=== PATIENT | male | born 1945 ===

== ENCOUNTER 2017-08-21 07:41 | Day surgery (SDC) | payer MEDICARE, OTHER ==
[2017-08-21] MEDS ORDERED: Lactated Ringer's 500 ML IV ONE (09:31)
[2017-08-21] MEDS ORDERED: Midazolam 2 MG/2 ML VIAL ONE (10:09)
[2017-08-21] MEDS ORDERED: Propofol 10 mg/ml Inj (20 ML) ONE (10:09)
[2017-08-21] MEDS ORDERED: ePHEDrine 50 mg/ml Inj ONE (10:31)
[2017-08-21 11:06] VITALS: BP 122/67; PULSE 83; RESP 14; TEMP 96.5; O2SAT 99
== END 2017-08-21 11:30 | disposition home or self-care (01) ==
LOC: H.ENDO 07:41
PROVIDERS: ATTEND Internal Medicine Gastroenterology
DX: Z12.11 Encounter for screening for malignant neoplasm of colon (principal); E11.9 Type 2 diabetes mellitus without complications; E78.5 Hyperlipidemia, unspecified; I10 Essential (primary) hypertension; E03.9 Hypothyroidism, unspecified; K57.30 Diverticulosis of large intestine without perforation or abscess without bleeding; K64.0 First degree hemorrhoids
CPT/HCPCS: 45378; J2250; J2704; J7120

== ENCOUNTER 2017-10-21 06:59 | Emergency (ER) | payer MEDICARE, OTHER ==
[2017-10-21 07:31] VITALS: BP 135/64; PULSE 102; RESP 16; TEMP 99; O2SAT 99
--- NOTE | 2017-10-21 07:56 | ED PDOC ---
HPI: CCC, URI, Sore Throat Time Seen by Provider: 10/21/17 07:28 Chief Complaint (Nursing): Flu-like Symptoms History Per: Patient, Tour Counselor (kate harden interpreter) History/Exam Limitations: no limitations Have you had recent travel within the past 21 days to any of the following countries: [place], [place], [place] or [place]?: No Onset/Duration Of Symptoms: Days (2), Gradual Current Symptoms Are (Timing): Still Present Location Of Pain: None Sick Contacts (Context): None Associated Symptoms: Cough. denies: Fever, Chills, Sore Throat, Sputum, Neck Pain, Myalgias, Nasal Congestion, Nausea, Vomiting, Diarrhea Ear Symptoms: Bilateral: None Severity: Mild Additional History Per: Patient Additional Complaint(s): Complaints of cough and congestion beginning Friday. Complaints of right flank pain when coughing. Past Medical History Reviewed: Historical Data, Nursing Documentation, Vital Signs Vital Signs: Last Vital Signs Temp 99.0 F 10/21/17 07:29 Pulse 102 H 10/21/17 07:29 Resp 16 10/21/17 07:29 BP 135/64 10/21/17 07:29 Pulse Ox 99 10/21/17 09:00 - Medical History PMH: Bronchitis, Diabetes (Type II), HTN, Hypercholesterolemia, Hypothyroidism Denies: Chronic Kidney Disease - Family History Family History: States: Unknown Family Hx - Living Arrangements Living Arrangements: With Family - Social History Current smoker - smoking cessation education provided: No - Immunization History Hx Tetanus Toxoid Vaccination: Yes Hx Influenza Vaccination: Yes Hx Pneumococcal Vaccination: No - Home Medications Home Medications: Ambulatory Orders Medication Instructions Recorded Aspirin [Ecotrin] 81 mg PO DAILY 04/16/16 Albuterol HFA [Ventolin HFA 90 1 puff IH BID 10/21/17 mcg/actuation (8 g)] Finasteride [Proscar] 5 mg PO DAILY 10/21/17 Insulin Aspart/Insulin Aspar 20 units SQ BID 10/21/17 [Novolog Mix 70/30 (70/30 units/ml)] Levofloxacin [Levaquin] 500 mg PO DAILY #7 tablet 10/21/17 Levothyroxine [Synthroid] 50 mcg PO DAILY 10/21/17 Pravastatin Sodium [Pravachol] 40 mg PO DAILY 12/05/17 Sitagliptin Phos/Metformin HCl 1 tab PO BID 10/21/17 [Janumet 50-1,000 mg Tablet] Tamsulosin HCl [Flomax] 1 tab PO DAILY 10/21/17 - Allergies Allergies/Adverse Reactions: Allergies Allergy/AdvReac Type Severity Reaction Status Date / Time No Known Allergies Allergy Verified 08/21/17 09:27 Curb-65 Severity Score - CURB-65 Severity Score Confusion: No Bun >19mg/dl (>7mmol/L): No Systolic BP <90 or Diastolic BP less than/equal 60mmHg: No Age >64: Yes Curb-65 Score: 1 Percentage 30-day mortality: 2.7% Review of Systems ROS Statement: Except As Marked, All Systems Reviewed And Found Negative Constitutional: Negative for: Fever, Sweats Cardiovascular: Negative for: Chest Pain, Palpitations Respiratory: Positive for: Cough. Negative for: Shortness of Breath Gastrointestinal: Negative for: Nausea, Vomiting, Abdominal Pain Musculoskeletal: Negative for: Neck Pain Neurological: Negative for: Weakness, Numbness Physical Exam - Reviewed Nursing Documentation Reviewed: Yes Vital Signs Reviewed: Yes - Physical Exam Appears: Positive for: Uncomfortable Head Exam: Positive for: ATRAUMATIC, NORMAL INSPECTION, NORMOCEPHALIC Skin: Positive for: Normal Color, Warm, Dry Eye Exam: Positive for: Normal appearance, EOMI, PERRL ENT: Positive for: Pharynx Is (clear,mmm). Negative for: Pharyngeal Erythema, Tonsillar Exudate Neck: Positive for: Normal, Painless ROM, Supple Cardiovascular/Chest: Positive for: Regular Rate, Rhythm, Chest Non Tender. Negative for: Edema, Gallop Respiratory: Positive for: Normal Breath Sounds. Negative for: Decreased Breath Sounds, Accessory Muscle Use, Crackles, Rales, Rhonchi, Stridor, Wheezing , Respiratory Distress Pulses-Radial (L): 2+ Pulses-Radial (R): 2+ Gastrointestinal/Abdominal: Positive for: Normal Exam, Bowel Sounds, Soft. Negative for: Tenderness Back: Positive for: Normal Inspection. Negative for: L CVA Tenderness, R CVA Tenderness Extremity: Positive for: Normal ROM. Negative for: Tenderness, Pedal Edema, Calf Tenderness, Deformity, Swelling Neurologic/Psych: Positive for: Alert, movie projectionist II-XII, Oriented, Mood/Affect (calm) , Gait (gait steady). Negative for: Motor/Sensory Deficits, Facial Droop - Laboratory Results Result Diagrams: 10/21/17 08:00 10/21/17 08:00 - ECG ECG: Positive for: Interpreted By Me ECG Rhythm: Positive for: Normal ST Segment, Right Bundle Branch Block Interpretation Of Abn EKG: rate of 82, abnml ecg w/o change since prev O2 Sat by Pulse Oximetry: 99 Pulse Ox Interpretation: Normal - Radiology X-Ray: Interpreted by Me X-Ray Interpretation: No Acute Disease - Progress ED Course And Treament: ct scan of abd and pelvis w/o contrast revelas small renal stones, pt has mild cough now will place on levaquin now advise close f/u with pmd. Re-evaluation Time: 12:00 Condition: Improved Disposition - Clinical Impression Clinical Impression: Bronchitis, Renal stones - Patient ED Disposition Is Patient to be Admitted: No Counseled Patient/Family Regarding: Studies Performed, Diagnosis, Need For Followup, Rx Given - Disposition Referrals: [facility] [place] [Outside] (2 to 3 days) Disposition: Routine/Home Disposition Time: 12:00 Condition: GOOD Prescriptions: Levofloxacin [Levaquin] 500 mg PO DAILY #7 tablet Instructions: Acute Bronchitis (ED), Kidney Stones (ED) Forms: [employer] (Amharic) Print Language: BULGARIAN
[2017-10-21 08:17] LABS: BASO # 0.1 K/uL (0.0-0.2); BASO % 0.7 % (0.0-2.0); EOS # 0.3 K/uL (0.0-0.7); EOS % 2.7 % (0.0-4.0); HEMATOCRIT 34.8 % (35.0-51.0); LYMPH # 1.7 K/uL (1.0-4.3); LYMPH % 16.1 % (20.0-40.0); MEAN CORPUSCULAR HEMOGLOBIN 28.8 pg (27.0-31.0); MEAN CORPUSCULAR HGB CONC 32.8 g/dL (33.0-37.0); MEAN PLATELET VOLUME 8.2 fl (7.2-11.7); MONO % 9.1 % (0.0-10.0); NEUT # 7.5 K/uL (1.8-7.0); NEUT % 71.4 % (50.0-75.0); RED CELL DISTRIBUTION WIDTH 15.1 % (11.5-14.5); WHITE BLOOD COUNT 10.4 K/uL (4.8-10.8)
[2017-10-21 08:22] LABS: ALB/GLOB RATIO 1.1 (1.0-2.1); ALKALINE PHOSPHATASE 126 U/L (38-126); ALT/SGPT 29 U/L (21-72); AST/SGOT 19 U/L (17-59); BILIRUBIN,TOTAL 0.3 mg/dl (0.2-1.3); BLOOD UREA NITROGEN 26 mg/dl (9-20); CALCIUM 8.5 mg/dL (8.4-10.2); CARBON DIOXIDE 24 mmol/L (22-30); CHLORIDE 104 mmol/L (98-107); GFR AFRICAN-AMERICAN > 60; GLUCOSE,RANDOM 329 mg/dL (75-110); LIPASE 150 U/L (23-300); MAGNESIUM 1.7 MG/DL (1.6-2.3); POTASSIUM 4.3 MMOL/L (3.6-5.0); SODIUM 139 mmol/l (132-148); TOTAL PROTEIN 7.5 G/DL (6.3-8.2)
[2017-10-21 08:54] LABS: RBC URINE 6 /hpf (0-3); URINE BILIRUBIN NEGATIVE (NEGATIVE); URINE BLOOD SMALL (NEGATIVE); URINE COLOR YELLOW (YELLOW); URINE GLUCOSE (UA) >=500 mg/dL (Normal); URINE KETONE NEGATIVE (NEGATIVE); URINE LEUKOCYTE ESTERASE NEG Leu/uL (Negative); URINE PROTEIN NEGATIVE (NEGATIVE); URINE UROBILINOGEN 0.2-1.0 mg/dL (0.2-1.0); WBC URINE 1 /hpf (0-5)
[2017-10-21] MEDS ORDERED: Sodium Chloride 0.9% 500 ML IV ONE (09:51)
--- NOTE | 2017-10-21 13:13 | CT ---
PROCEDURE: CT Abdomen and Pelvis without intravenous contrast HISTORY: Left flank pain, calculus disease suspected COMPARISON: None. TECHNIQUE: Technique. Contrast Dose: Radiation dose: Total exam DLP = mGy-cm. This CT exam was performed using one or more of the following dose reduction techniques: Automated exposure control, adjustment of the mA and/or kV according to patient size, and/or use of iterative reconstruction technique. FINDINGS: LOWER THORAX: Unremarkable. LIVER: Unremarkable. No gross lesion or ductal dilatation. Simple cyst left hepatic lobe 0.8 x 1.6 cm GALLBLADDER AND BILE DUCTS: Unremarkable. PANCREAS: Unremarkable. No gross lesion or ductal dilatation. SPLEEN: Unremarkable. ADRENALS: Unremarkable. No mass. KIDNEYS AND URETERS: Multiple punctate calculi left kidney non larger than 2 mm. No evidence of hydronephrosis or hydroureter. Incidental cyst 2.2 cm Unremarkable right kidney. VASCULATURE: Unremarkable. No aortic aneurysm. BOWEL: Constipation without fecal impaction or obstruction. APPENDIX: Unremarkable. Normal appendix. PERITONEUM: Unremarkable. No free fluid. No free air. LYMPH NODES: Unremarkable. No enlarged lymph nodes. BLADDER: Unremarkable. REPRODUCTIVE: Enlarged prostate 5.2 x 6.5 cm. BONES: No acute fracture. OTHER FINDINGS: None. IMPRESSION: Nonobstructing calculi none larger than 2 mm left kidney. No evidence of hydronephrosis, hydroureter. Unremarkable urinary bladder. Markedly enlarged prostate impressing upon the urinary bladder.
--- NOTE | 2017-10-21 14:09 | RAD ---
HISTORY: cp COMPARISON: Chest radiographs 04/16/2016. TECHNIQUE: Chest PA and lateral FINDINGS: LUNGS: No active pulmonary disease. Calcified granuloma again seen the right apex. PLEURA: No significant pleural effusion identified. No pneumothorax apparent. CARDIOVASCULAR: Cardiac silhouette remains normal size with partially calcified right-sided aortic arch again evident. OSSEOUS STRUCTURES: No significant abnormalities. VISUALIZED UPPER ABDOMEN: Normal. OTHER FINDINGS: None. IMPRESSION: No interval acute cardiopulmonary disease appreciated.
[2017-10-21] MEDS ORDERED: levoFLOXacin 500 MG TAB PO STA (14:23)
--- NOTE | 2017-10-22 12:28 | CARD ---
APPROVED REPORT EKG Measurement Heart [id number] <Conclusion> Normal sinus rhythm Left axis deviation Right bundle branch block Abnormal ECG
== END 2017-10-21 15:00 | disposition home or self-care (01) ==
LOC: H.ER 06:59
DX: J40 Bronchitis, not specified as acute or chronic (principal); N20.0 Calculus of kidney; E03.9 Hypothyroidism, unspecified; E11.9 Type 2 diabetes mellitus without complications; E78.00 Pure hypercholesterolemia, unspecified; I10 Essential (primary) hypertension; N40.0 Benign prostatic hyperplasia without lower urinary tract symptoms; Z79.4 Long term (current) use of insulin; Z79.82 Long term (current) use of aspirin
CPT/HCPCS: 71020; 74176; 80053; 81003; 83690; 83735; 83880; 84484; 85025; 85610; 85730; 87804; 93005; 96360; 99284; J7040

== ENCOUNTER 2018-06-01 08:19 | Emergency (ER) | payer MEDICARE, OTHER ==
[2018-06-01 08:26] VITALS: BP 115/83; PULSE 81; O2SAT 98
[2018-06-01 08:27] VITALS: BMI 25.7
--- NOTE | 2018-06-01 08:55 | ED PDOC ---
HPI: Back Time Seen by Provider: 06/01/18 08:27 Chief Complaint (Nursing): Back Pain Chief Complaint (Provider): Back Pain History/Exam Limitations: no limitations Onset/Duration Of Symptoms: Days (x1) Additional Complaint(s): Susan Mcdonald is a 72 y/o male with past medical history of diabetes and Hypertension, who presents to the ED complaining of lower back pain, onset since x1 day ago. Patient reports the pain began yesterday after lifting heavy object and the pain does not radiate. The pain is not associated with weakness, paresthesia, or urinary symptoms. PMD: Joaquina Ness Past Medical History Reviewed: Historical Data, Nursing Documentation, Vital Signs Vital Signs: Last Vital Signs Temp 97 F L 06/01/18 08:25 Pulse 81 06/01/18 08:25 Resp BP 115/83 06/01/18 08:25 Pulse Ox 98 06/01/18 08:25 - Medical History PMH: Bronchitis, Diabetes (Type II), HTN, Hypercholesterolemia, Hypothyroidism Denies: Chronic Kidney Disease - Surgical History Surgical History: No Surg Hx - Family History Family History: States: Unknown Family Hx - Immunization History Hx Tetanus Toxoid Vaccination: Yes Hx Influenza Vaccination: Yes Hx Pneumococcal Vaccination: No - Home Medications Home Medications: Ambulatory Orders Medication Instructions Recorded Aspirin [Ecotrin] 81 mg PO DAILY 04/16/16 Albuterol HFA [Ventolin HFA 90 1 puff IH BID 10/21/17 mcg/actuation (8 g)] Finasteride [Proscar] 5 mg PO DAILY 10/21/17 Insulin Aspart/Insulin Aspar 20 units SQ BID 10/21/17 [Novolog Mix 70/30 (70/30 units/ml)] Levofloxacin [Levaquin] 500 mg PO DAILY #7 tablet 10/21/17 Levothyroxine [Synthroid] 50 mcg PO DAILY 10/21/17 Pravastatin Sodium [Pravachol] 40 mg PO DAILY 10/21/17 Sitagliptin Phos/Metformin HCl 1 tab PO BID 10/21/17 [Janumet 50-1,000 mg Tablet] Tamsulosin HCl [Flomax] 1 tab PO DAILY 10/21/17 Cyclobenzaprine [Cyclobenzaprine 10 mg PO TID #10 tab 06/01/18 HCl] Naproxen [Naprosyn] 500 mg PO Q12H #20 tab 06/01/18 - Allergies Allergies/Adverse Reactions: Allergies Allergy/AdvReac Type Severity Reaction Status Date / Time No Known Allergies Allergy Verified 08/21/17 09:27 Review of Systems ROS Statement: Except As Marked, All Systems Reviewed And Found Negative Genitourinary Male: Negative for: Dysuria, Frequency, Incontinence Musculoskeletal: Positive for: Back Pain (lower back ) Neurological: Negative for: Weakness, Other (paresthesia) Physical Exam - Reviewed Nursing Documentation Reviewed: Yes Vital Signs Reviewed: Yes - Physical Exam Appears: Positive for: Non-toxic, No Acute Distress Head Exam: Positive for: ATRAUMATIC, NORMOCEPHALIC Back: Positive for: Other (paralumbar spasm). Negative for: Vertebral Tenderness (midline spine tenderness or deformity) Extremity: Positive for: Normal ROM, Other (No pain straight leg raise test). Negative for: Pedal Edema, Deformity Neurologic/Psych: Negative for: Motor/Sensory Deficits - ECG O2 Sat by Pulse Oximetry: 98 (RA) Pulse Ox Interpretation: Normal - Progress Re-evaluation Time: 10:00 Condition: Improved Medical Decision Making Medical Decision Making: Time: 08:51 Initial Plan: --Flexeril 10 mg PO --Toradol 30 mg IM Scribe Attestation: Documented by Uriah Rosales, acting as a scribe for Benny Jorgensen MD. Provider Scribe Attestation: All medical record entries made by the Scribe were at my direction and personally dictated by me. I have reviewed the chart and agree that the record accurately reflects my personal performance of the history, physical exam, medical decision making, and the department course for this patient. I have also personally directed, reviewed, and agree with the discharge instructions and disposition. Disposition - Clinical Impression Clinical Impression: Back pain - Patient ED Disposition Is Patient to be Admitted: No Counseled Patient/Family Regarding: Diagnosis, Need For Followup, Rx Given - Disposition Referrals: [facility] [place] [Outside] Disposition: Routine/Home Disposition Time: 10:00 Condition: FAIR Prescriptions: Cyclobenzaprine [Cyclobenzaprine HCl] 10 mg PO TID #10 tab Naproxen [Naprosyn] 500 mg PO Q12H #20 tab Instructions: Low Back Pain in Adults Forms: [facility] (Spanish) Print Language: LITHUANIAN
[2018-06-01 09:09] VITALS: RESP 16; TEMP 97
== END 2018-06-01 10:13 | disposition home or self-care (01) ==
LOC: H.ER 08:19
DX: M54.9 Dorsalgia, unspecified (principal); E11.9 Type 2 diabetes mellitus without complications; Z79.4 Long term (current) use of insulin
CPT/HCPCS: 96372; 99283; J1885